=== PATIENT | male | born 1975 | race Two or more races ===

== ENCOUNTER 2022-07-15 01:09 | Emergency (ER) | payer MEDICAID, OTHER ==
[~2022-07-15] VITALS: Ht 167.6 cm; Wt 85.0 kg
[2022-07-15 01:29] VITALS: BP 167/86
[2022-07-15] MEDS ORDERED: IBUPROFEN 800 MG TAB PO ONE (02:30)
[2022-07-15] MEDS ORDERED: IBUP800T26 PO (02:51)
[2022-07-15] MEDS ORDERED: CYCL-837 PO (02:51)
== END 2022-07-15 04:24 | disposition home or self-care (01) ==
LOC: ER 01:09
DX: M54.50 Low back pain, unspecified (principal); Z79.1 Long term (current) use of non-steroidal anti-inflammatories (NSAID); Z79.899 Other long term (current) drug therapy; V43.52XA Car driver injured in collision with other type car in traffic accident, initial encounter; Y93.89 Activity, other specified; Y92.410 Unspecified street and highway as the place of occurrence of the external cause; Y99.8 Other external cause status
CPT/HCPCS: 72100